=== PATIENT | male | born 1980 | race Caucasian/White ===

== ENCOUNTER 2020-04-24 07:55 | Emergency (ER) | payer BC, SELFPAY ==
--- NOTE | ~2020-04-24 | CT_ITS ---
EXAMINATION: CT abdomen pelvis w con EXAM DATE: 04/24/2020 09:52 INDICATION: Left-sided abdominal pain, left flank pain, nausea and constipation. TECHNIQUE: Spiral CT of the abdomen and pelvis was performed following intravenous injection of 100 m L Omnipaque 350. Axial, coronal and sagittal images were reviewed. The dose-length product (DLP) fo r this examination was 269.42 mGy-cm. The exposure was tailored according to patient size (auto mA e xposure control), and iterative reconstruction (ASIR) was used as additional dose reduction technique . Comparison is made to prior examination from 05/14/2016. FINDINGS: There is small bowel intussusception, approximately 10 cm in length, in the left side of th e abdomen. This finding has been indicated, marked on the examination for review, clinical correlatio n. There is no inflammation surrounding the intussusception at this point. No definite lead point ma ss specifically identified. This is longer than typically seen for incidental transient intussuscepti on, suspected most likely cause for patient's acute symptoms. The liver, spleen, adrenal glands and pancreas are unremarkable. Gallbladder is unremarkable. No bi liary obstruction. Portal and splenic veins are patent. Kidneys enhance symmetrically. There is no hydronephrosis. There are two 5 mm right calyceal stones. The prostate is unremarkable. The bladde r is unremarkable. There is no retroperitoneal or pelvic lymphadenopathy. Small umbilical fat-cont aining hernia. The appendix is normal. There is expected amount of colonic stool. There is mild scattered colonic diverticulosis. There is no adjacent inflammatory change to suggest diverticulitis. No free intrape ritoneal gas. The heart is normal in size. There are no pericardial or pleural effusions. The rosalva g bases are unremarkable. There are no osteoblastic or osteolytic lesions identified. IMPRESSION: Jejunal intussusception, approximately 10 cm in length. Consider surgical consult. Reviewed, dictated and finalized at location B. [place] [employer] IMPRESSION: Jejunal intussusception, approximately 10 cm in length. Consider costello rgical consult.
[2020-04-24 08:05] VITALS: BP 124/68; PULSE 66; RESP 18; TEMP 36.6; O2SAT 100
[2020-04-24] MEDS: KETOROLAC (*BKC) 60 MG/2 ML VIAL IM (08:39)
[2020-04-24 08:41] LABS: Add Urine Microscopic? NO; Appearance Urine Clear (Clear); Bilirubin Urine Negative (Negative); Blood Urine Negative (Negative); Color Urine Yellow (Yellow); Glucose Urine UA Negative (Negative); Ketones Urine Negative (Negative); Leukocyte Esterase Ur Negative LEU/UL (Negative); Nitrate Urine Negative (Negative); Protein Urine Negative (Negative); Urobilinogen Urine 0.2 mg/dL (0.2-1.0)
[2020-04-24 08:41] LABS: Basophils Absolute Auto 0.05 K/mm3 (0.00-0.10); Basophils Percent Auto 0.7 % (0.0-1.0); Eosinophils Absolute Auto 0.12 K/mm3 (0.02-0.50); Eosinophils Percent Auto 1.8 % (1.0-6.0); Immature Granulocyte Absolute 0.01 K/mm3 (0.00-0.00); Immature Granulocyte Percent A 0.1 % (0.0-0.0); Lymphocytes Absolute Auto 1.79 K/mm3 (1.10-4.50); Lymphocytes Percent Auto 26.5 % (18.0-42.0); Mean Corpuscular HGB Conc 34.1 g/dL (32.0-36.0); Mean Corpuscular Volume 93.8 fL (78.0-102.0); Mean Platelet Volume 10.4 fl (8.7-11.0); Monocytes Percent Auto 7.4 % (2.0-11.0); Neutrophils Absolute Auto 4.3 K/mm3 (1.7-7.2); Neutrophils Percent Auto 63.5 % (50.0-70.0); Platelet Count Result 165 K/mm3 (150-420); Red Blood Count 4.69 M/mm3 (4.70-6.10); Red Cell Distribution Width 11.5 % (11.6-14.4); White Blood Count 6.8 K/mm3 (4.8-10.8)
[2020-04-24 09:01] LABS: Alanine Aminotransferase 25 U/L (16-63); Alkaline Phosphatase 46 U/L (46-116); Anion Gap 6 mmol/L (8-16); Aspartate Amino Transferase 12 U/L (15-37); Bilirubin,Total 0.5 mg/dL (0.00-1.00); Blood Urea Nitrogen 14 mg/dL (7-18); Calcium 8.8 mg/dL (8.5-10.1); Carbon Dioxide 28 mmol/L (21-32); Chloride 107 mmol/L (98-108); Estimated CRCL calculation 96 ml/min; Estimated Glomerular Filt Rate > 60; Glucose 95 mg/dL (70-99); Lipase 97 U/L (73-393); Osmolality Calculated 292 mOsm/kg (285-295); Potassium 3.9 mmol/L (3.5-5.1); Sodium 141 mmol/L (136-145); Total Protein 6.7 g/dL (6.4-8.2)
--- NOTE | 2020-04-24 10:23 | PC.NURSE ---
Pt. resting, ERP spoke c radiologist Re: CT results, ERP discussing transfer c pt. Pt. requests transfer to [facility] for surgical and transfer.
--- NOTE | 2020-04-24 10:36 | ED.BACK ---
HPI - Back Pain/Injury General Chief Complaint: Back Pain/Injury Stated Complaint: possible kidney stone Related Data Allergies Allergy/AdvReac Type Severity Reaction Status Date / Time No Known Allergies Allergy Verified 04/24/20 08:12 Review of Systems Constitutional: Constitutional: Reports no additional constitutional complaints ENT: Reports system reviewed and no additional complaints, except as documented Cardiovascular: Cardiovascular: Reports no additional cardiovascular complaints Respiratory: Respiratory: Reports no additional respiratory complaints Gastrointestinal: Comments: Back pain in left flank and left paravertebral area since Thursday. No abdominal pain. He says this is where he has had pain in the past when he had diverticulitis. He tells me he has had diverticulitis multiple times. He denies any pain in the usual LLQ as you would think of from diverticulitis Genitourinary: Genitourinary: Reports no additional male genitourinary complaints Musculoskeletal: Comments: Back pain as above, he has denied hurting his back. [facility] Past Medical History Medical History (Updated 04/24/20 @ 11:22 by Johnny Wilson MD) Diverticulitis Renal calculi Surgical History Surgical History History of nasal surgery Exam Const: General: no acute distress HENMT: Head: normal to inspection Eyes: Conjunctivae: conjunctivae normal Neck: Neck: no meningeal signs Chest: Chest palpation & inspection: normal inspection of the chest Resp: Effort & Inspection: normal respiratory effort Auscultation: clear to auscultation bilaterally Cardio: Rate: regular rate Rhythm: regular rhythm GI: GI Palp: Yes Soft to palpation Percussion: Yes normal to percussion Back/Spine/Pelvis: Other: normal exam Skin: General skin exam: normal color Neuro: General: patient oriented x3 and moves all extremities Extrem: General: normal to inspection Psych: Mental Status: mental status grossly normal Course Course Emergency Course: He was seen and evaluated. He was given ketorolac 60mg which did not seem to help much. Urine and labs were reviewed. We ordered a CT of the abdomen and pelvis because he said he had similar pain when he had diverticulitis, multiple times in the past. Ct revealed intussusception of about 10cm of small bowel. Anion gap 6. He was given dilaudid 1mg and zofran 4mg IV Discussed with Dr Mina at [facility]. He will accept. Vital Signs Vital signs: Vital Signs Temperature 36.6 C 04/24/20 08:05 Pulse Rate 66 04/24/20 08:05 Respiratory Rate 18 04/24/20 08:05 Blood Pressure 124/68 04/24/20 08:05 Pulse Oximetry 100 04/24/20 08:05 Temperature 36.6 C 04/24/20 08:05 Pulse Rate 66 04/24/20 08:05 Respiratory Rate 18 04/24/20 08:05 Blood Pressure 124/68 04/24/20 08:05 Pulse Oximetry 100 04/24/20 08:05 MDM - Back Pain/Injury Lab Data Attestation: I reviewed the patient's lab results. Result diagrams: 04/24/20 08:33 04/24/20 08:33 Labs: Lab Results 04/24/20 04/24/20 04/24/20 Range/Units 08:24 08:33 08:33 WBC 6.8 (4.8-10.8) K/mm3 RBC 4.69 L (4.70-6.10) M/mm3 Hgb 15.0 (14.0-18.0) g/dL Hct 44.0 (40.0-54.0) % MCV 93.8 (78.0-102.0) fL MCH 32.0 H (27.0-31.0) pg MCHC 34.1 (32.0-36.0) g/dL RDW 11.5 L (11.6-14.4) % Plt Count 165 (150-420) K/mm3 MPV 10.4 (8.7-11.0) fl Immature Gran % (Auto) 0.1 H (0.0-0.0) % Neut % (Auto) 63.5 (50.0-70.0) % Lymph % (Auto) 26.5 (18.0-42.0) % [place] % (Auto) 7.4 (2.0-11.0) % Eos % (Auto) 1.8 (1.0-6.0) % Baso % (Auto) 0.7 (0.0-1.0) % Lymph # (Auto) 1.79 (1.10-4.50) K/mm3 [place] # (Auto) 0.50 (0.10-0.90) K/mm3 Eos # (Auto) 0.12 (0.02-0.50) K/mm3 Baso # (Auto) 0.05 (0.00-0.10) K/mm3 Abs Immat Gran (auto) 0.01 H (0.00-0.00) K/mm3 Ab
[2020-04-24] MEDS: HYDROmorphone HCL INJ (*CRX) 2 MG/ML VIAL 1 MG IV PUSH (10:42)
[2020-04-24] MEDS: ONDANSETRON INJ 4 MG/2 ML VIAL IV PUSH (10:42)
--- NOTE | 2020-04-24 11:05 | PC.NURSE ---
Report to GEORGE Jeronimo
[2020-04-24 11:44] VITALS: BP 105/58; PULSE 58; RESP 18; O2SAT 96
--- NOTE | 2020-04-24 12:01 | PC.NURSE ---
Awaiting room assignment from [facility].
[2020-04-24 12:53] VITALS: BP 105/54; PULSE 52; RESP 16; O2SAT 98
== END 2020-04-24 12:45 | disposition short-term general hospital (02) ==
PROVIDERS: Emergency Provider Emergency Medicine; PCP Internal Medicine
DX: K56.1 Intussusception (principal)
CPT/HCPCS: 36415; 74177; 80053; 81003; 83690; 85025; 96372; 96374; 96375; 99283; 99285; J1170; J1885; J2405; Q9965

== ENCOUNTER 2020-05-09 07:40 | Outpatient (CLI) | payer BC, SELFPAY ==
--- NOTE | ~2020-05-09 | CT_ITS ---
EXAMINATION: CT abdomen pelvis w con DATE: 05/09/2020 08:37 INDICATION: Colon intussusception TECHNIQUE: Computed tomography (CT) of the abdomen and pelvis was performed with 100 cc Omnipaque 350 intravenous contrast. Automated exposure control and iterative reconstruction technique were employe d. Exam dose: 269.28 mGy-cm total exam DLP. COMPARISON: 05/21/2020 CT abdomen pelvis FINDINGS: The lung bases are clear. Normal heart size. No pericardial or pleural effusion. The liver, gallbladder, bile ducts, pancreas, pancreatic duct, spleen, adrenal glands and kidneys are unremarkable, with the exception of 2 small nonobstructing right renal calculi. Interval resolution of jejunal intussusception since 04/24/2020. No bowel mass lesion, bowel wall thic kening, pneumatosis or intraperitoneal free air is evident. The stomach and duodenum are somewhat distended with fluid and there is some thickening of the wall o f the duodenum. Diverticulosis of the colon; no CT evidence of diverticulitis. No bowel wall thickening, pneumatosis or intraperitoneal free air. Normal appendix. Normal caliber of the abdominal aorta. No intraperitoneal or retroperitoneal or pelvic mass lesion or adenopathy or ascites. Prostate gland and urinary bladder hilar unremarkable. Included skeletal structures are unremarkable. IMPRESSION: Resolution of jejunal intussusception since 04/24/2020 Reviewed, dictated and finalized at Location [facility]. Reviewed, dictated and finalized at location B. S MANAGER
== END 2020-05-09 07:41 | disposition home or self-care (01) ==
LOC: CHSIMG 07:42
PROVIDERS: PCP Internal Medicine
DX: K56.1 Intussusception (principal)
CPT/HCPCS: 74177; Q9965

== ENCOUNTER 2020-12-10 15:50 | Outpatient (CLI) | payer BC, SELFPAY ==
--- NOTE | ~2020-12-10 | XR_ITS ---
XR shoulder LT min 2V DATE: 12/10/2020 16:14 INDICATION: Left shoulder pain TECHNIQUE: 4 views COMPARISON: None FINDINGS: No fracture, dislocation, periosteal reaction or bone destruction. No significant abnormal soft tissue calcification of the left shoulder. IMPRESSION: Negative Reviewed, dictated and finalized at location A. IMPRESSION: Negative
--- NOTE | ~2020-12-10 | XR_ITS ---
XR_[id number] 12/10/2020 16:15 Indication: Cervical spine pain Procedure: 3 views of the cervical spine Comparison: No prior studies for comparison. Findings: Straightening of cervical lordosis. No prevertebral soft tissue swelling. Odontoid process within normal limits. There is mild degenerative disc disease at C5-6 and C6-7. No prevertebral soft tissue swelling. No fracture or traumatic malalignment. Lung apices are normal. Impression: 1: Mild cervical spondylosis. Reviewed, dictated and finalized at location B. Impression: 1: Mild cervical spondylosis.
--- NOTE | ~2020-12-10 | XR_ITS ---
XR elbow LT min 3V DATE: 12/10/2020 16:15 INDICATION: Left elbow pain TECHNIQUE: 4 views COMPARISON: None FINDINGS: There is spurring at the radial ulnar and capitellar radial joint and spurring of the ulnar coronoid process. No fracture or dislocation or joint effusion. No periosteal reaction or bone destruction. IMPRESSION: Osteoarthritis Reviewed, dictated and finalized at location A. IMPRESSION: Osteoarthritis
== END 2020-12-10 15:51 | disposition home or self-care (01) ==
LOC: CHSIMG 15:52
PROVIDERS: PCP Internal Medicine; Visit Provider Internal Medicine
DX: M25.512 Pain in left shoulder (principal); M25.522 Pain in left elbow
CPT/HCPCS: 72040; 73030; 73080

== ENCOUNTER 2023-06-08 14:07 | Emergency (ER) | payer SELFPAY ==
[2023-06-08] VITALS (7 sets, daily range): BP systolic 99–125; BP diastolic 64–91; PULSE 53–81; RESP 14–17; TEMP 36.2–36.7; O2SAT 96–98
--- NOTE | ~2023-06-08 | CT_ITS ---
EXAMINATION: CT abdomen pelvis w con INDICATION: Acute right lower quadrant pain TECHNIQUE: Computed tomographic images of the abdomen and pelvis were obtained after the administrati on of 100 cc of Omnipaque 350 intravenous contrast. The dose-length product (DLP) was 315.64 mGy-cm. Automated exposure control and iterative reconstruction technique were employed. COMPARISON: 05/09/2020 FINDINGS: Minimal dependent atelectasis is present in the lung bases. The heart size is normal. The l iver, spleen, pancreas, gallbladder, and adrenal glands are normal. Nonobstructing stones of the righ t kidney measure up to 4 mm. The left kidney is unremarkable. No pathologically enlarged abdominal or pelvic lymph nodes are identified. No free intraperitoneal gas or evidence of bowel obstruction. Col onic diverticulosis is present without evidence of diverticulitis. The appendix is normal. IMPRESSION: 1. No CT correlate for the patient's symptoms. Reviewed, dictated and finalized at location B. [employer]
[2023-06-08 15:20] LABS: Basophils Absolute Auto 0.04 K/mm3 (0.00-0.10); Basophils Percent Auto 0.5 % (0.0-1.0); Eosinophils Absolute Auto 0.07 K/mm3 (0.02-0.50); Eosinophils Percent Auto 0.9 % (1.0-6.0); Hematocrit 41.8 % (40.0-54.0); Hemoglobin 14.3 g/dL (14.0-18.0); Immature Granulocyte Absolute 0.03 K/mm3 (0.00-0.00); Immature Granulocyte Percent A 0.4 % (0.0-0.0); Lymphocytes Absolute Auto 2.17 K/mm3 (1.10-4.50); Lymphocytes Percent Auto 28.1 % (18.0-42.0); Mean Corpuscular HGB Conc 34.2 g/dL (32.0-36.0); Mean Corpuscular Hemoglobin 31.8 pg (27.0-31.0); Mean Corpuscular Volume 92.9 fL (78.0-102.0); Mean Platelet Volume 10.3 fl (8.7-11.0); Monocytes Absolute Auto 0.66 K/mm3 (0.10-0.90); Monocytes Percent Auto 8.6 % (2.0-11.0); Neutrophils Absolute Auto 4.7 K/mm3 (1.7-7.2); Neutrophils Percent Auto 61.5 % (50.0-70.0); Platelet Count Result 184 K/mm3 (150-420); Red Cell Distribution Width 11.4 % (11.6-14.4); White Blood Count 7.7 K/mm3 (4.8-10.8)
--- NOTE | 2023-06-08 15:35 | ED.GENADULT ---
HPI - General Adult General Chief complaint: Abdominal Pain Stated complaint: lower right abdominal pain Time Seen by Provider: 06/08/23 14:28 History of Present Illness HPI narrative: 42yo man presents with 2 weeks of RLQ abdominal pain, initially in waves, now constant. has history of irritable bowel syndrome and says his bowel movements have been loose lately. No fevers. +nausea. No bloody stools. Related Data Allergies Allergy/AdvReac Type Severity Reaction Status Date / Time No Known Allergies Allergy Verified 06/08/23 14:26 Review of Systems Review of Systems: All systems reviewed & are unremarkable except as noted in HPI and below Constitutional: Constitutional: Denies chills and Denies fever(s) ENT: Denies dysphagia Cardiovascular: Cardiovascular: Denies chest pain Respiratory: Respiratory: Denies dyspnea Gastrointestinal: Gastrointestinal: Reports abdominal pain PMFSH Past Medical History Medical History Diverticulitis Renal calculi Surgical History Surgical History History of nasal surgery Exam Const: General: healthy appearing and no acute distress Nutritional Appearance: well nourished Orientation/consciousness: patient oriented x3 Eyes: Conjunctivae: conjunctivae normal Resp: Effort & Inspection: normal respiratory effort and not labored Auscultation: clear to auscultation bilaterally Cardio: Rate: regular rate Rhythm: regular rhythm Heart sounds: no murmurs GI: Inspection: non-distended GI Palp: Yes Soft to palpation, No Tenderness to palpation present (GI) and No Guarding due to palpation present (GI) Skin: General skin exam: normal color, no jaundice and no pallor Extrem: General: no clubbing, cyanosis or edema Course Vital Signs Vital signs: Vital Signs Temperature 36.2 C L 06/08/23 14:44 Pulse Rate 81 06/08/23 14:44 Respiratory Rate 14 06/08/23 14:44 Blood Pressure 125/76 06/08/23 14:44 Pulse Oximetry 98 06/08/23 14:44 Oxygen Delivery Room Air 06/08/23 14:44 Temperature 36.2 C L 06/08/23 14:44 Pulse Rate 81 06/08/23 14:44 Respiratory Rate 14 06/08/23 14:44 Blood Pressure 125/76 06/08/23 14:44 Pulse Oximetry 98 06/08/23 14:44 Oxygen Delivery Room Air 06/08/23 14:44 Medical Decision Making MDM Narrative Medical decision making narrative: acute RLQ without tenderness DDx probable indigestion, irritable bowel, less likely renal colic or appendicitis, unlikely colitis Vital Signs Vital Signs: Vital Signs Temperature 36.2 C L 06/08/23 14:44 Pulse Rate 81 06/08/23 14:44 Respiratory Rate 14 06/08/23 14:44 Blood Pressure 125/76 06/08/23 14:44 Pulse Oximetry 98 06/08/23 14:44 Oxygen Delivery Room Air 06/08/23 14:44 Temperature 36.2 C L 06/08/23 14:44 Pulse Rate 81 06/08/23 14:44 Respiratory Rate 14 06/08/23 14:44 Blood Pressure 125/76 06/08/23 14:44 Pulse Oximetry 98 06/08/23 14:44 Oxygen Delivery Room Air 06/08/23 14:44 Lab Data 06/08/23 15:16 06/08/23 15:16 Labs: Lab Results 06/08/23 Range/Units 15:16 WBC 7.7 (4.8-10.8) K/mm3 RBC 4.50 L (4.70-6.10) M/mm3 Hgb 14.3 (14.0-18.0) g/dL Hct 41.8 (40.0-54.0) % MCV 92.9 (78.0-102.0) fL MCH 31.8 H (27.0-31.0) pg MCHC 34.2 (32.0-36.0) g/dL RDW 11.4 L (11.6-14.4) % Plt Count 184 (150-420) K/mm3 MPV 10.3 (8.7-11.0) fl Immature Gran % (Auto) 0.4 H (0.0-0.0) % Neut % (Auto) 61.5 (50.0-70.0) % Lymph % (Auto) 28.1 (18.0-42.0) % [place] % (Auto) 8.6 (2.0-11.0) % Eos % (Auto) 0.9 L (1.0-6.0) % Baso % (Auto) 0.5 (0.0-1.0) % Lymph # (Auto) 2.17 (1.10-4.50) K/mm3 [place] # (Auto) 0.66 (0.10-0.90) K/mm3 Eos # (Auto) 0.07 (0.02-0.50) K/mm3 Baso # (Auto) 0.04 (0.00-0.10) K/mm3 Abs Immat Gran (auto) 0.03 H (0.00-0.00) K/mm3
[2023-06-08] MEDS: SODIUM CHLORIDE 0.9% IV 1,000 ML 999 ML IV CONT (15:38)
[2023-06-08 15:39] LABS: Lactic Acid Reflex 0.6 mmol/L (0.4-2.0)
[2023-06-08] MEDS: diphenhydrAMINE HCl INJ 50 MG/ML VIAL 25 MG IV PUSH (15:40)
[2023-06-08] MEDS: KETOROLAC 30 MG/ML VIAL (*BKC) IV PUSH (15:40)
[2023-06-08 15:45] LABS: Magnesium 1.8 mg/dL (1.8-2.4)
[2023-06-08 15:46] LABS: Alanine Aminotransferase 35 U/L (16-63); Alkaline Phosphatase 52 U/L (46-116); Anion Gap 5 mmol/L (8-16); Aspartate Amino Transferase 17 U/L (15-37); Bilirubin,Total 0.5 mg/dL (0.00-1.00); Blood Urea Nitrogen 15 mg/dL (7-18); Calcium 9.2 mg/dL (8.5-10.1); Carbon Dioxide 31 mmol/L (21-32); Chloride 103 mmol/L (98-108); Estimated CRCL calculation 87 ml/min; Estimated Glomerular Filt Rate > 60; Glucose 81 mg/dL (70-99); Lipase 38 U/L (16-77); Osmolality Calculated 287 mOsm/kg (285-295); Potassium 3.7 mmol/L (3.5-5.1); Sodium 139 mmol/L (136-145); Total Protein 6.9 g/dL (6.4-8.2)
== END 2023-06-08 17:22 | disposition home or self-care (01) ==
PROVIDERS: Emergency Provider Emergency Medicine; PCP Internal Medicine
DX: K52.9 Noninfective gastroenteritis and colitis, unspecified (principal)
CPT/HCPCS: 36415; 74177; 80053; 83605; 83690; 83735; 85025; 96361; 96374; 96375; 99284; J1200; J1885; J7030; Q9967

== ENCOUNTER 2023-08-10 06:41 | Emergency (ER) | payer OTHER, SELFPAY ==
--- NOTE | ~2023-08-10 | CT_ITS ---
EXAMINATION: CT abdomen pelvis wo con DATE: 08/10/2023 08:16 INDICATION: Right flank pain TECHNIQUE: Computed tomography (CT) of the abdomen and pelvis was performed without intravenous contr ast. The dose-length product (DLP) was 329.39 mGy-cm. Automated exposure control and iterative recons truction technique were employed. COMPARISON: 06/08/2023 FINDINGS: The lung bases are clear. The heart size is normal. There is a small sliding hiatal hernia. The liver, spleen, pancreas, gallbladder, and adrenal glands are normal. The left kidney is unremark able. There is a 4 mm nonobstructing stone in the right mid kidney. There is a [address] one of the right kidney lower pole. There are no stones in the kidneys, ureters or bladder. No hydron ephrosis or hydroureter. There is chronic mild enlargement of the appendix which is gas-filled throug hout and without periappendiceal inflammatory change. No pathologically enlarged abdominal or pelvic lymph nodes are identified. No free intraperitoneal gas or evidence of bowel obstruction. There is a small umbilical hernia containing fat. IMPRESSION: 1. Nonobstructing right nephrolithiasis. Reviewed, dictated and finalized at location B. ER [employer]
[2023-08-10 06:44] VITALS: BP 123/81; PULSE 69; RESP 18; TEMP 36.3; O2SAT 98
--- NOTE | 2023-08-10 07:12 | PC.NURSE ---
PT IS LYING ON STRETCHER, REPORTING PASS IS GONE AT THIS TIME. PT CONTINUES TO AWAIT ERP ASSESSMENT. WILL CONTINUE TO MONITOR.
[2023-08-10 07:37] LABS: Appearance Urine Clear (Clear); Basophils Absolute Auto 0.04 K/mm3 (0.00-0.10); Basophils Percent Auto 0.9 % (0.0-1.0); Bilirubin Urine Negative (Negative); Blood Urine Negative (Negative); Color Urine Light Yellow (Yellow); Eosinophils Absolute Auto 0.16 K/mm3 (0.02-0.50); Eosinophils Percent Auto 3.7 % (1.0-6.0); Glucose Urine UA Negative (Negative); Hematocrit 44.1 % (40.0-54.0); Immature Granulocyte Absolute 0.02 K/mm3 (0.00-0.00); Immature Granulocyte Percent A 0.5 % (0.0-0.0); Ketones Urine Negative (Negative); Leukocyte Esterase Ur Negative LEU/UL (Negative); Lymphocytes Absolute Auto 1.61 K/mm3 (1.10-4.50); Lymphocytes Percent Auto 37.4 % (18.0-42.0); Mean Corpuscular Hemoglobin 31.1 pg (27.0-31.0); Mean Corpuscular Volume 91.3 fL (78.0-102.0); Mean Platelet Volume 9.8 fl (8.7-11.0); Monocytes Absolute Auto 0.37 K/mm3 (0.10-0.90); Monocytes Percent Auto 8.6 % (2.0-11.0); Neutrophils Absolute Auto 2.1 K/mm3 (1.7-7.2); Neutrophils Percent Auto 48.9 % (50.0-70.0); Nitrate Urine Negative (Negative); Platelet Count Result 173 K/mm3 (150-420); Protein Urine Negative (Negative); Red Blood Count 4.83 M/mm3 (4.70-6.10); Red Cell Distribution Width 11.3 % (11.6-14.4); Specific Grav Ur 1.015 (1.010-1.020); Urobilinogen Urine 0.2 mg/dL (0.2-1.0); White Blood Count 4.3 K/mm3 (4.8-10.8)
[2023-08-10 07:39] LABS: Add Urine Microscopic? NO
--- NOTE | 2023-08-10 07:52 | ED.GENADULT ---
HPI - General Adult General Chief complaint: Urogenital-Male Stated complaint: abdominal pain Time Seen by Provider: 08/10/23 07:16 History of Present Illness HPI narrative: 43yo man presents with right flank and back pain, onset yesterday. No straining or fall or other trauma. Had similar pain 2 months ago, more in RLQ abdomen and flank, with unremarkable CT. He had stones in his right kidney but nothing in the duct to explain his pain. Says pain today is similar and wondering if a stone did start to pass. No fevers, chills, nausea, diarrhea, black or bloody stool. Related Data Allergies Allergy/AdvReac Type Severity Reaction Status Date / Time No Known Allergies Allergy Verified 08/10/23 06:46 Review of Systems Review of Systems: All systems reviewed & are unremarkable except as noted in HPI and below Constitutional: Constitutional: Denies chills and Denies fever(s) ENT: Denies dysphagia Cardiovascular: Cardiovascular: Denies chest pain Respiratory: Respiratory: Denies dyspnea Gastrointestinal: Gastrointestinal: Denies abdominal pain PMFSH Past Medical History Medical History Diverticulitis Renal calculi Surgical History Surgical History History of nasal surgery Exam Const: General: healthy appearing and no acute distress Nutritional Appearance: well nourished HENMT: Head: normal to inspection Resp: Effort & Inspection: normal respiratory effort and not labored Cardio: Rate: regular rate GI: Inspection: non-distended GI Palp: Yes Soft to palpation and No Tenderness to palpation present (GI) Skin: General skin exam: normal color, no jaundice and no pallor Neuro: General: patient oriented x3 and moves all extremities Extrem: General: no clubbing, cyanosis or edema Course Vital Signs Vital signs: Vital Signs Temperature 36.3 C L 08/10/23 06:44 Pulse Rate 69 08/10/23 06:44 Respiratory Rate 18 08/10/23 06:44 Blood Pressure 123/81 08/10/23 06:44 Pulse Oximetry 98 08/10/23 06:44 Temperature 36.3 C L 08/10/23 06:44 Pulse Rate 69 08/10/23 06:44 Respiratory Rate 18 08/10/23 06:44 Blood Pressure 123/81 08/10/23 06:44 Pulse Oximetry 98 08/10/23 06:44 Medical Decision Making MDM Narrative Medical decision making narrative: right flank and back pain DDx likely muscle spasm or renal colic, less likely abdominal pathology, hemorrhage, indigestion. Vital Signs Vital Signs: Vital Signs Temperature 36.3 C L 08/10/23 06:44 Pulse Rate 69 08/10/23 06:44 Respiratory Rate 18 08/10/23 06:44 Blood Pressure 123/81 08/10/23 06:44 Pulse Oximetry 98 08/10/23 06:44 Temperature 36.3 C L 08/10/23 06:44 Pulse Rate 08/10/23 06:44 Respiratory Rate 08/10/23 06:44 Blood Pressure 123/81 08/10/23 06:44 Pulse Oximetry 98 08/10/23 06:44 Lab Data 08/10/23 07:31 08/10/23 07:31 Labs: Lab Results 08/10/23 Range/Units 07:31 WBC 4.3 L (4.8-10.8) K/mm3 RBC 4.83 (4.70-6.10) M/mm3 Hgb 15.0 (14.0-18.0) g/dL Hct 44.1 (40.0-54.0) % MCV 91.3 (78.0-102.0) fL MCH 31.1 H (27.0-31.0) pg MCHC 34.0 (32.0-36.0) g/dL RDW 11.3 L (11.6-14.4) % Plt Count 173 (150-420) K/mm3 MPV 9.8 (8.7-11.0) fl Immature Gran % (Auto) 0.5 H (0.0-0.0) % Neut % (Auto) 48.9 L (50.0-70.0) % Lymph % (Auto) 37.4 (18.0-42.0) % [place] % (Auto) 8.6 (2.0-11.0) % Eos % (Auto) 3.7 (1.0-6.0) % Baso % (Auto) 0.9 (0.0-1.0) % Lymph # (Auto) 1.61 (1.10-4.50) K/mm3 [place] # (Auto) 0.37 (0.10-0.90) K/mm3 Eos # (Auto) 0.16 (0.02-0.50) K/mm3 Baso # (Auto) 0.04 (0.00-0.10) K/mm3 Abs Immat Gran (auto) 0.02 H (0.00-0.00) K/mm3 Absolute Neuts (auto) 2.1 (1.7-7.2) K/mm3 Absolute Nucleated RBC 0.00 (0.00-0.00) K/mm3 Nucleated RBC % 0.0 (0-0.0) % Sodium Pendi
[2023-08-10 07:53] LABS: Alanine Aminotransferase 28 U/L (16-63); Albumin Level 3.3 g/dL (3.4-5.0); Alkaline Phosphatase 54 U/L (46-116); Anion Gap 7 mmol/L (8-16); Aspartate Amino Transferase 17 U/L (15-37); Bilirubin,Total 0.4 mg/dL (0.00-1.00); Blood Urea Nitrogen 9 mg/dL (7-18); Calcium 8.7 mg/dL (8.5-10.1); Carbon Dioxide 31 mmol/L (21-32); Chloride 103 mmol/L (98-108); Estimated CRCL calculation 92 ml/min; Estimated Glomerular Filt Rate > 60; Glucose 95 mg/dL (70-99); Osmolality Calculated 290 mOsm/kg (285-295); Potassium 4.2 mmol/L (3.5-5.1); Sodium 141 mmol/L (136-145); Total Protein 6.8 g/dL (6.4-8.2)
[2023-08-10] MEDS: SODIUM CHLORIDE 0.9% IV 1,000 ML 999 ML IV CONT (08:00)
[2023-08-10] MEDS: KETOROLAC 30 MG/ML VIAL (*BKC) IV PUSH (08:01)
[2023-08-10] MEDS: methocarbamoL 500 MG TABLET 1000 MG PO (08:02)
[2023-08-10] MEDS: ORPHENADRINE CITRATE 30 MG/ML 2 ML VIAL 60 MG IV PUSH (08:02)
--- NOTE | 2023-08-10 08:05 | PC.NURSE ---
PT REPORTS PAIN RETURNED WHEN HE STOOD TO URINATE. PT REPORTS A DULL, ACHING, STABBING TYPE OF PAIN THAT STARTED IN RT FLANK AND IS CURRENTLY IN MIDDLE OF HIS BACK. PT DENIES ANY N-V. PT IS IN CT AT THIS TIME. WILL CONTINUE TO MONITOR.
[2023-08-10 08:55] VITALS: BP 123/73; PULSE 56; RESP 18; TEMP 36.7; O2SAT 99
== END 2023-08-10 08:55 | disposition home or self-care (01) ==
PROVIDERS: Emergency Provider Emergency Medicine; PCP Internal Medicine
DX: N20.0 Calculus of kidney (principal)
CPT/HCPCS: 36415; 74176; 80053; 81003; 85025; 96361; 96374; 96375; 99284; A9270; J1885; J2360; J7030